=== PATIENT | female | born 1945 | race Caucasian/White ===

== ENCOUNTER 2017-03-31 11:08 | Emergency (ER) | payer MEDICARE, OTHER ==
[~2017-03-31] VITALS: Ht 152.4 cm; Wt 71.8 kg
[~2017-03-31 11:08] MED LIST: ADLT ASA LOW81 MG PO; CALCIUM + D600 MG PO; CLARITIN10 MG PO; FLONASE NASAL50 MCG NAB; FOSAMAX70 MG PO; MULTIVITAMI1 PO; PRILOSEC20 MG/CAP PO; VITAMIN D1000 UNIT PO; ZETIA10 MG PO
[2017-03-31 12:00] LABS: HEMATOCRIT 42.1 % (37.0-47.0); IMMATURE GRANULOCYTES 0.3 % (0.0-1.0); MEAN CELL VOLUME 88.3 fL CALC (80.0-100.0); MEAN CORPUSCULAR HGB 29.4 pG CALC (26.0-32.0); MEAN CORPUSCULAR HGB CONC 33.3 g/L CALC (32.0-36.0); NEUT# 7.54 thou/uL (2.00-7.15); RED BLOOD COUNT 4.77 mill/uL (4.20-5.60); RED CELL DISTRI WIDTH 13.6 % (11.5-15.5)
[2017-03-31 12:15] LABS: ALBUMIN 4.8 g/dL (3.2-5.0); ALKALINE PHOSPHATASE 323 u/l (38-126); ANION GAP 22 (6-22 (CALC)); BILIRUBIN, TOTAL 1.3 mg/dL (0.0-1.4); BUN 15 mg/dL (8-23); BUN/CREATININE RATIO 17 (12-20 (CALC)); CALCIUM 10.1 mg/dL (8.4-10.2); CARBON DIOXIDE 19 mmol/l (22-30); CHLORIDE 106 mmol/l (95-108); CREATININE 0.9 mg/dL (0.5-1.0); GFR > 60 ML/MIN (>=60 (CALC)); GFR FOR AFR.AMER. > 60 ML/MIN (>=60 (CALC)); GLUCOSE 119 mg/dL (82-115); LIPASE 35 u/l (23-300); POTASSIUM 3.5 mmol/l (3.5-5.1); SGOT/AST 114 u/l (9-36); SGPT/ALT 128 u/l (11-66); SODIUM 144 mmol/l (137-146)
[2017-03-31 13:42] LABS: C. DIFFICILE TOXIN A&B NEGATIVE (NEGATIVE)
[2017-03-31 13:45] LABS: URINE BLOOD DIPSTICK NEGATIVE (NEGATIVE); URINE COLOR YELLOW; URINE GLUCOSE - DIPSTICK NEGATIVE (NEGATIVE); URINE KETONE >=80 mg/dL (NEGATIVE); URINE LEUK ESTERASE TRACE (NEGATIVE); URINE NITRITE - DIPSTICK NEGATIVE (Negative); URINE PROTEIN - DIPSTICK 30 mg/dL (NEG-TRACE); URINE SPECIFIC GRAVITY 1.025; URINE UROBILINOGEN - DIPSTICK 0.2 E.U./dL (0.2)
[2017-03-31 13:47] LABS: URINE BILIRUBIN - DIPSTICK MODERATE (NEGATIVE); URINE CLARITY CLEAR
[2017-03-31 13:56] LABS: URINE SQUAMOUS EPITHELIAL CELL FEW EPI/hpf (0-FEW)
[2017-03-31] MEDS ORDERED: METRONIDAZOL500 MG PO (16:01)
[2017-03-31] MEDS ORDERED: CIPRO XR500 MG PO (16:01)
[2017-03-31 16:13] VITALS: BP 160/69
== END 2017-03-31 16:13 | disposition home or self-care (01) ==
LOC: ED 11:08
PROVIDERS: Family Medicine
DX: R10.32 Left lower quadrant pain (principal); K21.9 Gastro-esophageal reflux disease without esophagitis
CPT/HCPCS: Q9967